=== PATIENT | male | born 1990 | race Caucasian/White ===

== ENCOUNTER 2016-04-07 17:03 | Emergency (ER) | payer OTHER ==
[~2016-04-07 17:03] MED LIST: CITA40TA PO; HYDR50CA PO
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
[2016-04-07] MEDS ORDERED: Haloperidol 5 mg/mL Inj IM ONE (17:55)
[2016-04-07 18:45] VITALS: BP 103/51; PULSE 66; RESP 14; O2SAT 97
[2016-04-07 18:53] LABS: BASOPHILS % (AUTO) 0.3 % (0-3); EOSINOPHILS % (AUTO) 0.6 % (0-5); MONOCYTES % (AUTO) 5.3 % (4-12); Mean Corpuscular Hemoglobin 29.5 pg (27.0-35.0); Mean Corpuscular Volume 86.1 fL (81-100); NEUTROPHILS % (AUTO) 81.5 % (40-74); Platelet Count 254 bil/L (150-400)
[2016-04-07 22:52] VITALS: BP 106/72; PULSE 64; RESP 14
[2016-04-08 04:03] LABS: APPEARANCE,URINE CLEAR (CLEAR,HAZY); COLOR,URINE YELLOW (YELLOW); OCCULT BLOOD,URINE LARGE (NEGATIVE); UROBILINOGEN,URINE NORMAL (NORMAL)
[2016-04-08 04:23] VITALS: BP 131/79; PULSE 96; RESP 16; O2SAT 100
== END 2016-04-08 04:19 | disposition home or self-care (01) ==
LOC: SED 17:03
DX: F19.20 Other psychoactive substance dependence, uncomplicated (principal); F10.220 Alcohol dependence with intoxication, uncomplicated; F32.9 Major depressive disorder, single episode, unspecified; Y90.8 Blood alcohol level of 240 mg/100 ml or more
CPT/HCPCS: 36415; 80053; 81001; 82550; 85025; 96372; 99285; G0480; J1200; J1630; J2060

== ENCOUNTER 2016-04-19 20:12 | Emergency (ER) | payer OTHER ==
[~2016-04-19] VITALS: Ht 177.8 cm; Wt 81.8 kg
[2016-04-19 20:15] VITALS: BP 145/84; PULSE 98; RESP 16; O2SAT 99
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
[2016-04-19 21:41] LABS: BASOPHILS % (AUTO) 0.8 % (0-3); EOSINOPHILS % (AUTO) 2.4 % (0-5); Mean Corpuscular Hemoglobin 29.5 pg (27.0-35.0); NEUTROPHILS % (AUTO) 59.8 % (40-74); Platelet Count 270 bil/L (150-400)
[2016-04-20] MEDS ORDERED: LAMO25TA PO (00:04)
[2016-04-20] MEDS ORDERED: HYDR50TA76 PO (00:04)
[2016-04-20 00:37] VITALS: BP 137/78; PULSE 86; RESP 16; O2SAT 97
== END 2016-04-20 00:25 | disposition home or self-care (01) ==
LOC: SED 20:12
DX: F31.4 Bipolar disorder, current episode depressed, severe, without psychotic features (principal); F10.220 Alcohol dependence with intoxication, uncomplicated; R45.851 Suicidal ideations; Y90.7 Blood alcohol level of 200-239 mg/100 ml; Z59.0 Homelessness; Z91.5 Personal history of self-harm
CPT/HCPCS: 36415; 80053; 81002; 85025; 99283; G0480

== ENCOUNTER 2016-08-27 18:55 | Emergency (ER) | payer OTHER ==
[~2016-08-27] VITALS: Ht 180.3 cm; Wt 75.0 kg
[~2016-08-27 18:55] MED LIST changes: +HYDR50TA76 PO; +LAMO25TA PO
[2016-08-27 18:58] VITALS: BP 137/78; PULSE 90; RESP 20; O2SAT 99
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
[2016-08-27] MEDS ORDERED: HYDROcodone-APAP 5-325 mg Tablet PO ONE (21:30)
[2016-08-27] MEDS ORDERED: Trimethoprim-Sulfa 160 mg-800 mg Tablet PO ONE (21:30)
[2016-08-27] MEDS ORDERED: Amoxicillin-Clav 875-125 mg Tablet PO ONE (21:30)
== END 2016-08-27 21:25 | disposition home or self-care (01) ==
LOC: SED 18:55
DX: L03.113 Cellulitis of right upper limb (principal); F19.10 Other psychoactive substance abuse, uncomplicated; Z79.899 Other long term (current) drug therapy